=== PATIENT | female | born 1970 | race American Indian/Alaskan Native ===

== ENCOUNTER 2019-01-14 11:42 | Observation (INO) | payer OTHER, MEDICAID ==
[2019-01-14 13:52] LABS: Basophils % (Auto) 0.2 % (0.0-1.8); Eosinophils # (Auto) 0.1 K/mm3 (0.0-0.4); Eosinophils % (Auto) 0.3 % (0.0-4.3); Hematocrit 40.7 % (30.3-42.9); Hemoglobin 13.2 gm/dl (10.1-14.3); Lymphocytes # (Auto) 1.9 K/mm3 (1.2-5.4); Lymphocytes % (Auto) 10.3 % (13.4-35.0); Mean Corpuscular HGB Conc 33 % (30-34); Mean Corpuscular Volume 98 fl (79-97); Monocytes % (Auto) 5.5 % (0.0-7.3); Platelet Count 204 K/mm3 (140-440); Red Blood Count 4.16 M/mm3 (3.65-5.03); Red Cell Distribution Width 13.3 % (13.2-15.2)
[2019-01-14 14:02] LABS: INR 1.03 (0.87-1.13)
[2019-01-14 14:12] LABS: Partial Thromboplastin Time 21.6 Sec. (24.2-36.6)
[2019-01-14 14:21] LABS: Alanine Aminotransferase 17 units/L (7-56); Albumin 4.4 g/dL (3.9-5)
[2019-01-14 14:25] LABS: Bilirubin,Direct < 0.2 mg/dL (0-0.2)
--- NOTE | 2019-01-14 14:32 | Emergency Department Report ---
ED General Adult HPI - General Chief complaint: Syncope Stated complaint: SYNCOPE/HYPOTENSION Time Seen by Provider: 01/14/19 13:04 Source: patient, EMS Mode of arrival: Stretcher Limitations: No Limitations - History of Present Illness Initial comments: This is a 48-year-old lady who states she has chronic back pain and takes gabapentin and another medication that she is unsure of. Apparently she had 2 syncopal episodes today at work. She had no observed seizure activity observed by coworkers. She is a bit nonspecific about the course of events. However she apparently was in a hallway and was assisted to the ground. Then she states she went in the bathroom and "the next thing I noticed I was in the ambulance". She complained of a mild to moderate headache. She did not have a headache prior to her syncopal episode. She experienced no focal neurological change. She denied neck pain or any other painful area secondary to the falls. She denied nausea vomiting photophobia or any apparent injury. -: Sudden, minutes(s) Location: head Radiation: non-radiation Quality: aching Consistency: intermittent Improves with: none Worsens with: none Associated Symptoms: denies other symptoms, syncope Treatments Prior to Arrival: none - Related Data Previous Rx's Medication Instructions Recorded Last Taken Type Terbinafine HCl [Antifungal] 30 gm TP BID #1 cream..g. 08/25/14 Unknown Rx Allergies Allergy/AdvReac Type Severity Reaction Status Date / Time No Known Allergies Allergy Unverified 08/25/14 17:27 ED Review of Systems ROS: Stated complaint: SYNCOPE/HYPOTENSION Other details as noted in HPI Constitutional: denies: chills, fever Eyes: denies: eye pain, eye discharge, vision change ENT: denies: ear pain, throat pain Respiratory: denies: cough, shortness of breath, wheezing Cardiovascular: syncope. denies: chest pain, palpitations Endocrine: no symptoms reported Gastrointestinal: denies: abdominal pain, nausea, diarrhea Genitourinary: denies: urgency, dysuria, discharge Musculoskeletal: denies: back pain, joint swelling, arthralgia Skin: denies: rash, lesions Neurological: as per HPI, headache. 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 ovarian CA - Surgical History Past Surgical History?: Yes Additional Surgical History: Hysterectomy. Bladder tack - Social History Smoking Status: Never Smoker - Medications Home Medications: Home Medications Medication Instructions Recorded Confirmed Last Taken Type Terbinafine HCl [Antifungal] 30 gm TP BID #1 cream..g. 08/25/14 Unknown Rx ED Physical Exam - General Limitations: No Limitations General appearance: alert, in no apparent distress, obese - Head Head exam: Present: atraumatic, normocephalic - Eye Eye exam: Present: normal appearance. Absent: scleral icterus - ENT ENT exam: Present: mucous membranes moist - Neck Neck exam: Present: normal inspection. Absent: tenderness, meningismus - Respiratory Respiratory exam: Present: normal lung sounds bilaterally. Absent: respiratory distress - Cardiovascular Cardiovascular Exam: Present: regular rate, normal rhythm. Absent: systolic murmur, diastolic murmur, rubs, gallop - GI/Abdominal GI/Abdominal exam: Present: soft, normal bowel sounds. Absent: distended, tenderness, guarding, rebound, rigid - Extremities Exam Extremities exam: Present: normal inspection, normal capillary refill. Absent: pedal edema, joint swelling, calf tenderness - Back Exam Back exam: Present: normal inspection - Neurological Exam Neurological exam: Present: alert, oriented X3. Absent: CN II-XII intact, motor sensory deficit - Psychiatric Psychiatric exam: Present: normal affect, normal mood - Skin Skin exam: Present: warm, dry, intact, normal color. Absent: rash ED Course Vital Signs 01/14/19 01/14/19 11:46 14:15 Temperature 97.6 F Pulse Rate 63 55 L Respiratory 20 18 Rate Blood Pressure 103/40 Blood Pressure 107/54 [Left] O2 Sat by Pulse 99 100 Oximetry - Reevaluation(s) Reevaluation #1: On reexamination the patient was not complaining of headache. She is stable. She does have an elevated d-dimer. A CT angiogram is pending. I discussed her case with Dr. Ramos, the hospitalist who will be admitting the patient. 01/14/19 14:48 ED Medical Decision Making - Lab Data Result diagrams: 01/14/19 13:09 01/14/19 13:09 Laboratory Results - last 24 hr 01/14/19 01/14/19 01/14/19 13:09 13:09 13:09 WBC 18.6 H RBC 4.16 Hgb 13.2 Hct 40.7 MCV 98 H MCH 32 MCHC 33 RDW 13.3 Plt Count 204 Lymph % (Auto) 10.3 L [place] % (Auto) 5.5 Eos % (Auto) 0.3 Baso % (Auto) 0.2 Lymph # 1.9 [place] # 1.0 H Eos # 0.1 Baso # 0.0 Seg Neutrophils % 83.7 H Seg Neutrophils # 15.5 H PT 13.4 INR 1.03 APTT 21.6 L D-Dimer 689.74 H Sodium 140 Potassium 4.4 Chloride 102.1 Carbon Dioxide 19 L Anion Gap 23 BUN 12 Creatinine 0.8 Estimated GFR > 60 BUN/Creatinine Ratio 15 Glucose 84 Calcium 9.7 Magnesium 2.00 Total Bilirubin Direct Bilirubin Indirect Bilirubin AST ALT Alkaline Phosphatase Total Creatine Kinase 61 CK-MB (CK-2) 1.5 CK-MB (CK-2) Rel Index 2.4 Troponin T 0.015 Total Protein Albumin Albumin/Globulin Ratio Blood Type Antibody Screen 01/14/19 01/14/19 13:09 13:09 WBC RBC Hgb Hct MCV MCH MCHC RDW Plt Count Lymph % (Auto) [place] % (Auto) Eos % (Auto) Baso % (Auto) Lymph # [place] # Eos # Baso # Seg Neutrophils % Seg Neutrophils # PT INR APTT D-Dimer Sodium Potassium Chloride Carbon Dioxide Anion Gap BUN Creatinine Estimated GFR BUN/Creatinine Ratio Glucose Calcium Magnesium Total Bilirubin 0.50 Direct Bilirubin < 0.2 Indirect Bilirubin 0.3 AST 18 ALT 17 Alkaline Phosphatase 86 Total Creatine Kinase CK-MB (CK-2) CK-MB (CK-2) Rel Index Troponin T Total Protein 7.2 Albumin 4.4 Albumin/Globulin Ratio 1.6 Blood Type B POSITIVE Antibody Screen Negative - EKG Data -: EKG Interpreted by Me EKG shows normal: sinus rhythm, axis, intervals, QRS complexes, ST-T waves Rate: normal - EKG Data Interpretation: no acute changes - Radiology Data Radiology results: image reviewed (CT the head looks normal to me. Radiologist interpretation is pending.) Critical care attestation.: If time is entered above; I have spent that time in minutes in the direct care of this critically ill patient, excluding procedure time. ED Disposition Clinical Impression: Recurrent syncope, Elevated d-dimer Headache Qualifiers: Headache type: unspecified Headache chronicity pattern: acute headache Intractability: not intractable Qualified Code(s): R51 - Headache Disposition: DC-09 OP ADMIT IP TO THIS HOSP Is pt being admited?: Yes Does the pt Need Aspirin: Yes Condition: Stable Time of Disposition: 14:51
[2019-01-14 14:34] LABS: Creatine Kinase MB 1.5 ng/mL (0.0-4.0)
[2019-01-14 14:36] LABS: BUN/Creatinine Ratio 15; Blood Urea Nitrogen 12 mg/dL (7-17); Calcium 9.7 mg/dL (8.4-10.2); Hemolysis Index 20
[2019-01-14] MEDS ORDERED: ASPIRIN 81 MG TAB CHEW PO ONE (14:52)
[2019-01-14 14:54] LABS: Mucus,Urine 2+ /HPF
--- NOTE | 2019-01-14 14:54 | Cat Scan Report ---
CT HEAD WITHOUT CONTRAST INDICATION / CLINICAL INFORMATION: Syncope. TECHNIQUE: Axial imaging performed from the skull apex through the skull base without the use of cont rast. Sagittal and coronal reformatted images. All CT scans at this location are performed using CT dose reduction for ALARA by means of automated exposure control. COMPARISON: None available. FINDINGS: CEREBRAL PARENCHYMA: No significant abnormality. No acute territorial infarct. HEMORRHAGE: None. EXTRA-AXIAL SPACES: Normal in size and morphology for the patient's age. VENTRICULAR SYSTEM: Normal in size and morphology for the patient's age. MIDLINE SHIFT OR HERNIATION: None. CEREBELLUM / BRAINSTEM: No significant abnormality. CALVARIUM: No significant abnormality. ORBITS: Normal as visualized. PARANASAL SINUSES / MASTOID AIR CELLS: Normal as visualized. SOFT TISSUES of HEAD: No significant abnormality. ADDITIONAL FINDINGS: None. IMPRESSION: No acute intracranial abnormality. Signer Name: Gavin Fraire Jr, MD Signed: 01/14/2019 2:50 PM Workstation Name: [id number]
[2019-01-14 15:11] LABS: Color,Urine Yellow (Yellow)
[2019-01-14 15:12] LABS: Urobilinogen,Urine < 2.0 mg/dL (<2.0)
[2019-01-14 15:13] LABS: Ictotest,Urine Negative (Negative)
[2019-01-14 15:25] LABS: Amphetamine Screen,Urine PRESUMPTIVE NEGATIVE; Benzodiazepines Screen,Urine PRESUMPTIVE NEGATIVE; Cannabinoid Screen,Urine PRESUMPTIVE NEGATIVE; Cocaine Screen,Urine PRESUMPTIVE NEGATIVE; Methadone Screen,Urine PRESUMPTIVE NEGATIVE; Opiate Screen,Urine PRESUMPTIVE NEGATIVE
--- NOTE | 2019-01-14 16:00 | Cat Scan Report ---
CTA of the chest with 3D Reconstruction Indication: ,syncope and elevated dimer Technique: TECHNIQUE: Axial CT images were obtained through the chest after injection of 100 cc of Omnipaque 350 IV contrast. 3 plane MIP reconstructions were produced. All CT scans at this location are performed using CT dose reduction for ALARA by means of automated exposure control. COMPARISON: None Automatic exposure control was utilized in an attempt to reduce radiation dose. Findings: Pulmonary arteries: The main pulmonary artery and right and left pulmonary artery branches fill satis factorily with contrast. No pulmonary embolus is seen. Lungs: There are small calcified granulomata. Mediastinum: Heart size is normal. No adenopathy is seen. Aorta: Normal in diameter. No dissection seen within limits of this exam. Impression: No pulmonary embolus is seen Signer Name: Zac Wiseman MD Signed: 01/14/2019 3:55 PM Workstation Name: [id number]
--- NOTE | 2019-01-14 16:30 | History and Physical Report ---
History of Present Illness Date of examination: 01/14/19 Date of admission: 01/14/19 15:01 Chief complaint: Syncopal episodes 2 this morning at work History of present illness: 48-year-old lady had 2 syncopal episodes today at work. Syncopal episodes were [id number] over 30 minutes apart. She had no observed seizure activity observed by coworkers. No precipitating factors. Never happened before. Apparently she was sitting and passed out at her desk. No chest pain or shortness of breath. Patient has history of peripheral neuropathy. Not under any stress. No chest pain. No shortness of breath. Lying in the bed comfortably. No recent travel. 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 ovarian CA Surgical History Past Surgical History?: Yes Additional Surgical History: Hysterectomy. Bladder tack Oral surgery secondary to a deep molar on the right jaw. Patient says she had a luna in the right jaw. Social History Smoking Status: Never Smoker Family History Htn Medications Home Medications: Home Medications Medication Instructions Recorded Confirmed Last Taken Type Terbinafine HCl [Antifungal] 30 gm TP BID #1 cream..g. 08/25/14 Unknown Rx Review of Systems ROS: Stated complaint: SYNCOPE/HYPOTENSION Other details as noted in HPI Constitutional: denies: chills, fever Eyes: denies: eye pain, eye discharge, vision change ENT: denies: ear pain, throat pain Respiratory: denies: cough, shortness of breath, wheezing Cardiovascular: syncope. denies: chest pain, palpitations Endocrine: no symptoms reported Gastrointestinal: denies: abdominal pain, nausea, diarrhea Genitourinary: denies: urgency, dysuria, discharge Musculoskeletal: denies: back pain, joint swelling, arthralgia Skin: denies: rash, lesions Neurological: as per HPI, headache. denies: weakness, paresthesias Psychiatric: denies: anxiety, depression Hematological/Lymphatic: denies: easy bleeding, easy bruising Medications and Allergies Allergies Allergy/AdvReac Type Severity Reaction Status Date / Time No Known Allergies Allergy Unverified 08/25/14 17:27 Home Medications Medication Instructions Recorded Confirmed Last Taken Type Gabapentin 300 mg PO QHS 01/14/19 01/14/19 01/14/19 History Omeprazole 20 mg PO QAC 01/14/19 01/14/19 01/14/19 History tiZANidine [Zanaflex 4mg TAB] 4 mg PO QHS 01/14/19 01/14/19 01/13/19 History Exam - Constitutional Vitals: Temp Pulse Resp BP Pulse Ox 97.6 F 78 14 125/78 95 01/14/19 11:46 01/14/19 16:15 01/14/19 16:15 01/14/19 16:15 01/14/19 16:15 General appearance: Present: no acute distress, well-nourished - EENT Eyes: Present: PERRL ENT: hearing intact, clear oral mucosa - Neck Neck: Present: supple, normal ROM - Respiratory Respiratory effort: normal Respiratory: bilateral: CTA - Cardiovascular Heart rate: 78 Rhythm: regular Heart Sounds: Present: S1 & S2. Absent: rub, click - Extremities Extremities: no ischemia, pulses intact (was a), pulses symmetrical, No edema Peripheral Pulses: within normal limits - Abdominal General gastrointestinal: Present: soft, non-tender, non-distended, normal bowel sounds Female genitourinary: Present: normal - Rectal Rectal Exam: deferred - Integumentary Integumentary: Present: clear, warm, dry - Musculoskeletal Musculoskeletal: gait normal, strength equal bilaterally - Psychiatric Psychiatric: appropriate mood/affect, intact judgment & insight - Neurologic Neurologic: CNII-XII intact, moves all extremities - Allied Health Allied health notes reviewed: nursing, case management ( little elevated initially) Results - Labs CBC & Chem 7: 01/14/19 13:09 01/14/19 13:09 Labs: Laboratory Last Values WBC 18.6 K/mm3 (4.5-11.0) H 01/14/19 13:09 RBC 4.16 M/mm3 (3.65-5.03) 01/14/19 13:09 Hgb 13.2 gm/dl (10.1-14.3) 01/14/19 13:09 Hct 40.7 % (30.3-42.9) 01/14/19 13:09 MCV 98 fl (79-97) H 01/14/19 13:09 MCH 32 pg (28-32) 01/14/19 13:09 MCHC 33 % (30-34) 01/14/19 13:09 RDW 13.3 % (13.2-15.2) 01/14/19 13:09 Plt Count 204 K/mm3 (140-440) 01/14/19 13:09 Lymph % (Auto) 10.3 % (13.4-35.0) L 01/14/19 13:09 [place] % (Auto) 5.5 % (0.0-7.3) 01/14/19 13:09 Eos % (Auto) 0.3 % (0.0-4.3) 01/14/19 13:09 Baso % (Auto) 0.2 % (0.0-1.8) 01/14/19 13:09 Lymph # 1.9 K/mm3 (1.2-5.4) 01/14/19 13:09 [place] # 1.0 K/mm3 (0.0-0.8) H 01/14/19 13:09 Eos # 0.1 K/mm3 (0.0-0.4) 01/14/19 13:09 Baso # 0.0 K/mm3 (0.0-0.1) 01/14/19 13:09 Seg Neutrophils % 83.7 % (40.0-70.0) H 01/14/19 13:09 Seg Neutrophils # 15.5 K/mm3 (1.8-7.7) H 01/14/19 13:09 PT 13.4 Sec. (12.2-14.9) 01/14/19 13:09 INR 1.03 (0.87-1.13) 01/14/19 13:09 APTT 21.6 Sec. (24.2-36.6) L 01/14/19 13:09 D-Dimer 689.74 ng/mlDDU (0-234) H 01/14/19 13:09 Sodium 140 mmol/L (137-145) 01/14/19 13:09 Potassium 4.4 mmol/L (3.6-5.0) 01/14/19 13:09 Chloride 102.1 mmol/L (98-107) 01/14/19 13:09 Carbon Dioxide 19 mmol/L (22-30) L 01/14/19 13:09 Anion Gap 23 mmol/L 01/14/19 13:09 BUN 12 mg/dL (7-17) 01/14/19 13:09 Creatinine 0.8 mg/dL (0.7-1.2) 01/14/19 13:09 Estimated GFR > 60 ml/min 01/14/19 13:09 BUN/Creatinine Ratio 15 % 01/14/19 13:09 Glucose 84 mg/dL (65-100) 01/14/19 13:09 Calcium 9.7 mg/dL (8.4-10.2) 01/14/19 13:09 Magnesium 2.00 mg/dL (1.7-2.3) 01/14/19 13:09 Total Bilirubin 0.50 mg/dL (0.1-1.2) 01/14/19 13:09 Direct Bilirubin < 0.2 mg/dL (0-0.2) 01/14/19 13:09 Indirect Bilirubin 0.3 mg/dL 01/14/19 13:09 AST 18 units/L (5-40) 01/14/19 13:09 ALT 17 units/L (7-56) 01/14/19 13:09 Alkaline Phosphatase 86 units/L (35-129) 01/14/19 13:09 Total Creatine Kinase 61 units/L (30-135) 01/14/19 13:09 CK-MB (CK-2) 1.5 ng/mL (0.0-4.0) 01/14/19 13:09 CK-MB (CK-2) Rel Index 2.4 (0-4) 01/14/19 13:09 Troponin T 0.015 ng/mL (0.00-0.029) 01/14/19 13:09 Total Protein 7.2 g/dL (6.3-8.2) 01/14/19 13:09 Albumin 4.4 g/dL (3.9-5) 01/14/19 13:09 Albumin/Globulin Ratio 1.6 % 01/14/19 13:09 Urine Color Yellow (Yellow) 01/14/19 14:22 Urine Turbidity Clear (Clear) 01/14/19 14:22 Urine pH 7.0 (5.0-7.0) 01/14/19 14:22 Urine Protein 30 mg/dl mg/dL (Negative) 01/14/19 14:22 Urine Glucose (UA) Negative mg/dL (Negative) 01/14/19 14:22 Urine Ketones Negative mg/dL (Negative) 01/14/19 14:22 Urine Nitrite Negative (Negative) 01/14/19 14:22 Ur Reducing Substances Not Reportable 01/14/19 14:22 Urine Ictotest Negative (Negative) 01/14/19 14:22 Urine Urobilinogen < 2.0 mg/dL (<2.0) 01/14/19 14:22 Ur Leukocyte Esterase Negative (Negative) 01/14/19 14:22 Urine WBC (Auto) 1.0 /HPF (0.0-6.0) 01/14/19 14:22 Urine RBC (Auto) 1.0 /HPF (0.0-6.0) 01/14/19 14:22 U Epithel Cells (Auto) < 1.0 /HPF (0-13.0) 01/14/19 14:22 Urine Mucus 2+ /HPF 01/14/19 14:22 Urine Opiates Screen Presumptive negative 01/14/19 14:22 Urine Methadone Screen Presumptive negative 01/14/19 14:22 Ur Barbiturates Screen Presumptive negative 01/14/19 14:22 Ur Phencyclidine Scrn Presumptive negative 01/14/19 14:22 Ur Amphetamines Screen Presumptive negative 01/14/19 14:22 U Benzodiazepines Scrn Presumptive negative 01/14/19 14:22 Urine Cocaine Screen Presumptive negative 01/14/19 14:22 U Marijuana (THC) Screen Presumptive negative 01/14/19 14:22 Drugs of Abuse Note Disclamer 01/14/19 14:22 Blood Type B POSITIVE 01/14/19 13:09 Antibody Screen Negative 01/14/19 13:09 Short CBC 01/14/19 Range/Units 13:09 WBC 18.6 H (4.5-11.0) K/mm3 Hgb 13.2 (10.1-14.3) gm/dl Hct 40.7 (30.3-42.9) % Plt Count 204 (140-440) K/mm3 BMP 01/14/19 13:09 Sodium 140 Potassium 4.4 Chloride 102.1 Carbon Dioxide 19 L BUN 12 Creatinine 0.8 Glucose 84 Calcium 9.7 Cardiac Enzymes 01/14/19 Range/Units 13:09 Total Creatine Kinase 61 (30-135) units/L CK-MB (CK-2) 1.5 (0.0-4.0) ng/mL Troponin T 0.015 (0.00-0.029) ng/mL Liver Function 01/14/19 Range/Units 13:09 Total Bilirubin 0.50 (0.1-1.2) mg/dL Direct Bilirubin < 0.2 (0-0.2) mg/dL AST 18 (5-40) units/L ALT 17 (7-56) units/L Alkaline Phosphatase 86 (35-129) units/L Albumin 4.4 (3.9-5) g/dL Urine 01/14/19 Range/Units 14:22 Urine Color Yellow (Yellow) Urine pH 7.0 (5.0-7.0) Urine Protein 30 mg/dl (Negative) mg/dL Urine Glucose (UA) Negative (Negative) mg/dL - Imaging and Cardiology EKG: report reviewed (normal sinus rhythm heart rate of 60/m no acute ST-T wave changes) Chest x-ray: report reviewed CT scan - chest: report reviewed (CT angiogram is negative for pulmonary embolism) CT Scan - head: report reviewed (no acute findings) Assessment and Plan Advance Directives: Yes (full code) VTE prophylaxis?: Chemical Plan of care discussed with patient/family: Yes - Patient Problems (1) Recurrent syncope Current Visit: Yes Status: Acute Plan to address problem: Syncope workup CT angiogram of the chest is negative Head CT is negative Patient to get echocardiogram and stress test tomorrow Serial troponins IV fluids (2) Muscle spasm Current Visit: Yes Status: Chronic Plan to address problem: Continue tizanidine (3) Leukocytosis Current Visit: Yes Status: Acute Qualifiers: Leukocytosis type: unspecified Qualified Code(s): D72.829 - Elevated white blood cell count, unspecified Plan to address problem: Probably Demargination No source of infection identified No antibiotics were started Trend her WBC count (4) GERD (gastroesophageal reflux disease) Current Visit: Yes Status: Acute Qualifiers: Esophagitis presence: without esophagitis Qualified Code(s): K21.9 - Gastro-esophageal reflux disease without esophagitis Plan to address problem: On PPIs (5) DVT prophylaxis Current Visit: Yes Status: Acute Plan to address problem: On heparin and GI prophylaxis
[2019-01-14] MEDS ORDERED: ACETAMINOPHEN 325 MG TAB PO PRN ×2 (17:34→17:50)
[2019-01-14] MEDS ORDERED: oxyCODONE /ACETAMINOPHEN 5-325MG TAB PO PRN (17:34)
[2019-01-14] MEDS ORDERED: HYDROmorphone 1 MG/1 ML INJ IV PRN (17:34)
[2019-01-14] MEDS ORDERED: ONDANSETRON 4 MG/2 ML INJ IV PRN ×2 (17:34→17:51)
[2019-01-14] MEDS: SODIUM CHLORIDE 0.9% 1000 ML 1,000 ML IV SCH (21:11)
[2019-01-14] MEDS: FAMOTIDINE 20 MG/2 ML INJ IV SCH (21:12)
[2019-01-14] MEDS: tiZANidine TAB 4 MG TAB PO SCH (21:12)
[2019-01-14] MEDS: GABAPENTIN 300 MG CAP PO SCH (21:12)
[2019-01-14] MEDS: HEPARIN 5,000 UNIT/1 ML VIAL SUB-Q SCH (21:12)
[2019-01-15] MEDS: SODIUM CHLORIDE 0.9% 1000 ML 1,000 ML IV SCH (06:49)
[2019-01-15] MEDS ORDERED: NON-FORMULARY EACH (Omeprazole [Omeprazole] 20 MG) PO SCH (07:30)
[2019-01-15] MEDS ORDERED: PANTOPRAZOLE 20 MG TAB PO SCH (07:30)
[2019-01-15] MEDS: FAMOTIDINE 20 MG/2 ML INJ IV SCH (09:52)
[2019-01-15] MEDS: HEPARIN 5,000 UNIT/1 ML VIAL SUB-Q SCH ×2 (09:52→21:49)
[2019-01-15] MEDS: PANTOPRAZOLE 20 MG TAB PO SCH ×2 (09:52→13:13)
[2019-01-15] MEDS ORDERED: REGADENOSON 0.4 MG/5 ML INJ IV ONE (10:09)
[2019-01-15] MEDS ORDERED: FLU VACC QUAD 2019-20 (3 YR UP)/PF 60 MCG/0.5 ML SYRINGE IM ONE (12:00)
--- NOTE | 2019-01-15 12:00 | Event Note ---
Date: 01/15/19 Syncope Normal 12 lead ECG No arrhythmias on tele Normal LVEF Normal MPI No PE on CTA chest NAP on CT brain No further cardiac work-up is needed
[2019-01-15 13:03] LABS: Hematocrit 37.9 % (30.3-42.9); Hemoglobin 12.9 gm/dl (10.1-14.3); Mean Corpuscular HGB Conc 34 % (30-34); Mean Corpuscular Volume 95 fl (79-97); Platelet Count 213 K/mm3 (140-440); Red Blood Count 4.01 M/mm3 (3.65-5.03); Red Cell Distribution Width 13.2 % (13.2-15.2)
--- NOTE | 2019-01-15 13:34 | Treadmill Report ---
ORDERING PHYSICIAN: Carter Ramos MD INDICATION: Syncope. FINDINGS: There is no scintigraphic evidence of myocardial ischemia. The left ventricle is normal in size and systolic function. The left ventricular ejection fraction is measured at 60%. Normal wall motion and wall thickening is noted on gated imaging. CONCLUSION: Normal perfusion scan. JOB# [id number]
--- NOTE | 2019-01-15 16:06 | Progress Note ---
Assessment and Plan Assessment and plan: Recurrent syncope Syncope workup CT angiogram of the chest is negative Head CT is negative Patient to get echocardiogram and stress test tomorrow Stress test negative Will consult Neurology Neurochecks Muscle spasm Continue tizanidine Leukocytosis Probably Demargination No source of infection identified No antibiotics were started Trend her WBC count GERD (gastroesophageal reflux disease) On PPIs (DVT prophylaxis On heparin and GI prophylaxis History Interval history: Syncope X 2 at work Hospitalist Physical - Physical exam Narrative exam: Gen: Not in acute distress, lying in bed, obese HEENT: Normocephalic, atraumatic Neck: supple, no JVD Heart: S1 and S2 reg, no murmurs, rubs or gallop Lungs: Clear to auscultation bilaterally, Abd: soft, non tender, non distended, normal BS, Ext: No edema, no clubbing, no cyanosis Neuro: Awake, alert, oriented X 3, moves all ext - Constitutional Vitals: Temp Pulse Resp BP Pulse Ox 97.7 F 74 15 127/67 95 01/15/19 12:27 01/15/19 12:27 01/15/19 12:27 01/15/19 12:27 01/15/19 12:27 General appearance: Present: no acute distress, well-nourished Results - Labs CBC & Chem 7: 01/15/19 12:51 01/14/19 13:09 Labs: Laboratory Last Values WBC 9.2 K/mm3 (4.5-11.0) 01/15/19 12:51 RBC 4.01 M/mm3 (3.65-5.03) 01/15/19 12:51 Hgb 12.9 gm/dl (10.1-14.3) 01/15/19 12:51 Hct 37.9 % (30.3-42.9) 01/15/19 12:51 MCV 95 fl (79-97) 01/15/19 12:51 MCH 32 pg (28-32) 01/15/19 12:51 MCHC 34 % (30-34) 01/15/19 12:51 RDW 13.2 % (13.2-15.2) 01/15/19 12:51 Plt Count 213 K/mm3 (140-440) 01/15/19 12:51 Lymph % (Auto) 10.3 % (13.4-35.0) L 01/14/19 13:09 [place] % (Auto) 5.5 % (0.0-7.3) 01/14/19 13:09 Eos % (Auto) 0.3 % (0.0-4.3) 01/14/19 13:09 Baso % (Auto) 0.2 % (0.0-1.8) 01/14/19 13:09 Lymph # 1.9 K/mm3 (1.2-5.4) 01/14/19 13:09 [place] # 1.0 K/mm3 (0.0-0.8) H 01/14/19 13:09 Eos # 0.1 K/mm3 (0.0-0.4) 01/14/19 13:09 Baso # 0.0 K/mm3 (0.0-0.1) 01/14/19 13:09 Seg Neutrophils % 83.7 % (40.0-70.0) H 01/14/19 13:09 Seg Neutrophils # 15.5 K/mm3 (1.8-7.7) H 01/14/19 13:09 PT 13.4 Sec. (12.2-14.9) 01/14/19 13:09 INR 1.03 (0.87-1.13) 01/14/19 13:09 APTT 21.6 Sec. (24.2-36.6) L 01/14/19 13:09 D-Dimer 689.74 ng/mlDDU (0-234) H 01/14/19 13:09 Sodium 140 mmol/L (137-145) 01/14/19 13:09 Potassium 4.4 mmol/L (3.6-5.0) 01/14/19 13:09 Chloride 102.1 mmol/L (98-107) 01/14/19 13:09 Carbon Dioxide 19 mmol/L (22-30) L 01/14/19 13:09 Anion Gap 23 mmol/L 01/14/19 13:09 BUN 12 mg/dL (7-17) 01/14/19 13:09 Creatinine 0.8 mg/dL (0.7-1.2) 01/14/19 13:09 Estimated GFR > 60 ml/min 01/14/19 13:09 BUN/Creatinine Ratio 15 % 01/14/19 13:09 Glucose 84 mg/dL (65-100) 01/14/19 13:09 Calcium 9.7 mg/dL (8.4-10.2) 01/14/19 13:09 Magnesium 2.00 mg/dL (1.7-2.3) 01/14/19 13:09 Total Bilirubin 0.50 mg/dL (0.1-1.2) 01/14/19 13:09 Direct Bilirubin < 0.2 mg/dL (0-0.2) 01/14/19 13:09 Indirect Bilirubin 0.3 mg/dL 01/14/19 13:09 AST 18 units/L (5-40) 01/14/19 13:09 ALT 17 units/L (7-56) 01/14/19 13:09 Alkaline Phosphatase 86 units/L (35-129) 01/14/19 13:09 Total Creatine Kinase 61 units/L (30-135) 01/14/19 13:09 CK-MB (CK-2) 1.5 ng/mL (0.0-4.0) 01/14/19 13:09 CK-MB (CK-2) Rel Index 2.4 (0-4) 01/14/19 13:09 Troponin T < 0.010 ng/mL (0.00-0.029) 01/15/19 00:19 Total Protein 7.2 g/dL (6.3-8.2) 01/14/19 13:09 Albumin 4.4 g/dL (3.9-5) 01/14/19 13:09 Albumin/Globulin Ratio 1.6 % 01/14/19 13:09 Urine Color Yellow (Yellow) 01/14/19 14:22 Urine Turbidity Clear (Clear) 01/14/19 14:22 Urine pH 7.0 (5.0-7.0) 01/14/19 14:22 Urine Protein 30 mg/dl mg/dL (Negative) 01/14/19 14:22 Urine Glucose (UA) Negative mg/dL (Negative) 01/14/19 14:22 Urine Ketones Negative mg/dL (Negative) 01/14/19 14:22 Urine Nitrite Negative (Negative) 01/14/19 14:22 Ur Reducing Substances Not Reportable 01/14/19 14:22 Urine Ictotest Negative (Negative) 01/14/19 14:22 Urine Urobilinogen < 2.0 mg/dL (<2.0) 01/14/19 14:22 Ur Leukocyte Esterase Negative (Negative) 01/14/19 14:22 Urine WBC (Auto) 1.0 /HPF (0.0-6.0) 01/14/19 14:22 Urine RBC (Auto) 1.0 /HPF (0.0-6.0) 01/14/19 14:22 U Epithel Cells (Auto) < 1.0 /HPF (0-13.0) 01/14/19 14:22 Urine Mucus 2+ /HPF 01/14/19 14:22 Urine Opiates Screen Presumptive negative 01/14/19 14:22 Urine Methadone Screen Presumptive negative 01/14/19 14:22 Ur Barbiturates Screen Presumptive negative 01/14/19 14:22 Ur Phencyclidine Scrn Presumptive negative 01/14/19 14:22 Ur Amphetamines Screen Presumptive negative 01/14/19 14:22 U Benzodiazepines Scrn Presumptive negative 01/14/19 14:22 Urine Cocaine Screen Presumptive negative 01/14/19 14:22 U Marijuana (THC) Screen Presumptive negative 01/14/19 14:22 Drugs of Abuse Note Disclamer 01/14/19 14:22 Blood Type B POSITIVE 01/14/19 13:09 Antibody Screen Negative 01/14/19 13:09 Active Medications - Current Medications Current Medications: Generic Name Dose Route Start Last Admin Trade Name Freq PRN Reason Stop Dose Admin Acetaminophen 650 mg 01/14/19 17:34 Tylenol PO Q4H PRN Pain MILD(1-3)/Fever >100.5/HARVEY Gabapentin 300 mg 01/14/19 22:00 01/14/19 21:12 Gabapentin PO 300 mg QHS AIXA Administration Heparin Sodium (Porcine) 5,000 unit 01/14/19 22:00 01/15/19 09:52 Heparin SUB-Q Not Given Q12HR AIXA Hydromorphone HCl 0.5 mg 01/14/19 17:34 01/15/19 06:54 Dilaudid IV 0.5 mg Q3H PRN Administration Pain , Severe (7-10) Sodium Chloride 1,000 mls @ 75 mls/hr 01/14/19 18:00 01/15/19 06:49 Nacl 0.9% 1000 Ml IV 75 mls/hr DIRECT AIXA Administration Ondansetron HCl 4 mg 01/14/19 17:34 Zofran IV Q8H PRN Nausea And Vomiting Oxycodone/Acetaminophen 1 tab 01/14/19 17:34 Percocet 5/325 PO Q6H PRN Pain, Moderate (4-6) Pantoprazole Sodium 20 mg 01/15/19 10:00 01/15/19 13:13 Protonix PO 20 mg QDAY AIXA Administration Sodium Chloride 10 ml 01/14/19 22:00 01/15/19 09:53 Sodium Chloride Flush Syringe 10 Ml IV Not Given BID AIXA Sodium Chloride 10 ml 01/14/19 17:34 Sodium Chloride Flush Syringe 10 Ml IV PRN PRN LINE FLUSH Tizanidine HCl 4 mg 01/14/19 22:00 01/14/19 21:12 Zanaflex PO 4 mg QHS AIXA Administration
--- NOTE | 2019-01-15 17:31 | Consultation ---
History of Present Illness Consult date: 01/15/19 Reason for Consult: Syncope Chief complaint: Loss of consciousness. History of present illness: Patient is a 48-year-old woman with history of ovarian cancer status post resection, IBS, inflammatory bowel disease, chronic back pain. The patient states that yesterday while at work, and around 10 AM, she suddenly began to feel lightheaded. She then stood up, after which she was noted to lose consciousness. Patient is not aware if she was having convulsions or any seizure-like activity when she lost consciousness. When she woke up, she noted that she had lost control of her bowel, and was taken to the bathroom. In the bathroom, the patient lost consciousness again. The next thing she remembers is that she was in the ambulance coming to the hospital. That she states that she has had chronic diarrhea due to underlying IBS and inflammatory bowel disease. She states that she is also had some difficulty looking left and right recently, she starts to get dizzy. Past History Past Medical History: other (h/o ovarian CA s/p resection) Social history: no significant social history, lives with family Family history: no significant family history Medications and Allergies Allergies Allergy/AdvReac Type Severity Reaction Status Date / Time No Known Allergies Allergy Unverified 08/25/14 17:27 Home Medications Medication Instructions Recorded Confirmed Last Taken Type Gabapentin 300 mg PO QHS 01/14/19 01/14/19 01/14/19 History Omeprazole 20 mg PO QAC 01/14/19 01/14/19 01/14/19 History tiZANidine [Zanaflex 4mg TAB] 4 mg PO QHS 01/14/19 01/14/19 01/13/19 History Active Meds: Active Medications Acetaminophen (Tylenol) 650 mg PO Q4H PRN PRN Reason: Pain MILD(1-3)/Fever >100.5/HARVEY Gabapentin (Gabapentin) 300 mg PO QHS [facility] Last Admin: 01/14/19 21:12 Dose: 300 mg Documented by: Heparin Sodium (Porcine) (Heparin) 5,000 unit SUB-Q Q12HR [facility] Last Admin: 01/15/19 09:52 Dose: Not Given Documented by: Hydromorphone HCl (Dilaudid) 0.5 mg IV Q3H PRN PRN Reason: Pain , Severe (7-10) Last Admin: 01/15/19 06:54 Dose: 0.5 mg Documented by: Sodium Chloride (Nacl 0.9% 1000 Ml) 1,000 mls @ 75 mls/hr IV DIRECT [facility] Last Admin: 01/15/19 06:49 Dose: 75 mls/hr Documented by: Ondansetron HCl (Zofran) 4 mg IV Q8H PRN PRN Reason: Nausea And Vomiting Oxycodone/Acetaminophen (Percocet 5/325) 1 tab PO Q6H PRN PRN Reason: Pain, Moderate (4-6) Pantoprazole Sodium (Protonix) 20 mg PO QDAY [facility] Last Admin: 01/15/19 13:13 Dose: 20 mg Documented by: Sodium Chloride (Sodium Chloride Flush Syringe 10 Ml) 10 ml IV BID [facility] Last Admin: 01/15/19 09:53 Dose: Not Given Documented by: Sodium Chloride (Sodium Chloride Flush Syringe 10 Ml) 10 ml IV PRN PRN PRN Reason: LINE FLUSH Tizanidine HCl (Zanaflex) 4 mg PO QHS [facility] Last Admin: 01/14/19 21:12 Dose: 4 mg Documented by: Review of Systems All systems: negative Neurological: syncope Physical Examination - Vital Signs Vital Signs: Vital Signs Temp Pulse Resp BP Pulse Ox 97.6 F 63 20 103/40 99 01/14/19 11:46 01/14/19 11:46 01/14/19 11:46 01/14/19 11:46 01/14/19 11:46 - Physical Exam Narrative exam: Patient is alert, awake, oriented x4. Follows complex commands. PERRL, EOMI, VFF, no facial weakness noted, tongue midline, b/l intact to LT. 5/5 strength in all extremities. b/l intact to LT. B/l intact to FTN and HTS. 2+ reflexes throughout. No dysarthria or aphasia noted. Patient noted that she feels dizzy when checking EOMI, however no nystagmus noted. - Constitutional General appearance: comfortable - EENT EENT: Present: ATNC, PERRL, mucous membranes moist, hearing intact, vision intact - Respiratory Respiratory: Present: lungs clear, normal breath sounds - Cardiovascular Cardiovascular: Present: regular rate, normal S1, normal S2 Extremities: Present: no clubbing, cyanosis, no inflammation - Gastrointestinal Gastrointestinal: Present: normoactive bowel sounds, soft, non-tender - Musculoskeletal Musculoskeletal: Present: no pain, normal range of motion - Psychiatric Psychiatric: Present: mood/affect appropriate Results - Laboratory Findings CBC and BMP: 01/15/19 12:51 01/14/19 13:09 Abnormal Lab Findings: Abnormal Labs 01/14/19 01/14/19 01/14/19 13:09 13:09 13:09 WBC 18.6 H MCV 98 H Lymph % (Auto) 10.3 L [place] # 1.0 H Seg Neutrophils % 83.7 H Seg Neutrophils # 15.5 H APTT 21.6 L D-Dimer 689.74 H Carbon Dioxide 19 L Assessment and Plan Patient is a 48-year-old woman with history of ovarian cancer status post rese ction, IBS, inflammatory bowel disease, chronic back pain, p/w LOC. According to the patient's clinical findings, it is likely that the patient has orthostatic hypotension. To support this, patient had increase in pulse >20 when standing up. Further, patient has chronic diarrhea due to underlying IBS and IBD, which would pre-dispose her to dehydration. Plan: 1. Syncope: - Likely due to orthostatic hypotension, as noted on orthostatic vital signs - Recommend avoiding dehydration. - Will check EEG - Patient to find out from co-workers if she had any convulsions during LOC - Check MRI brain, and MRA head/neck, as patient noted to have significant dizziness when looking laterally in both eyes. - Will continue to monitor patient. Thank you for allowing me to take part in the care of this patient. Keyon Álvarez MD Neurology
[2019-01-15] MEDS: GABAPENTIN 300 MG CAP PO SCH (21:49)
[2019-01-15] MEDS: tiZANidine TAB 4 MG TAB PO SCH (21:49)
[2019-01-16] MEDS: SODIUM CHLORIDE 0.9% 1000 ML 1,000 ML IV SCH (04:14)
--- NOTE | 2019-01-16 09:28 | Magnetic Resonance Report ---
MRI BRAIN WITHOUT CONTRAST INDICATION / CLINICAL INFORMATION: Syncope, dizziness. TECHNIQUE: Multisequence, multiplanar images were obtained. COMPARISON: CT head dated 01/14/2019 FINDINGS: CEREBRAL and CEREBELLAR HEMISPHERES: A solitary 8 mm focus of increased T2 signal/decreased T1 signal is identified in the left pericallosal region of the left parietal lobe. The remaining brain parench yma signal intensity and its lopez-white interface are within normal limits. No evidence of mass or ma ss effect. No midline shift. No acute hemorrhage. No diffusion restriction to suggest acute infarc t. No extra-axial fluid collection. VENTRICLES: Normal in size and configuration for age. VISUALIZED ORBITS: No significant abnormality. VISUALIZED PARANASAL SINUSES: No significant abnormality. ADDITIONAL FINDINGS: None. IMPRESSION: 8mm left parietal pericallosal lesion as described. This could represent a demyelinating plaque of un certain chronicity. As this patient have a history of multiple sclerosis Chronic focal infarct could also be considered. Please correlate with the patient's clinical presentation. MRA HEAD WITHOUT CONTRAST HISTORY: Syncope, dizziness COMPARISON: None. TECHNIQUE: Routine MRA of the head is performed. 3-D/MIP reformats postprocessed. CONTRAST: None. FINDINGS: Intracranial vertebral arteries: No significant abnormality. Basilar artery: No significant abnormality. Posterior cerebral arteries: No significant abnormality. Intracranial internal carotid arteries: No significant abnormality. Anterior cerebral arteries: No significant abnormality. Middle cerebral arteries: No significant abnormality. Additional findings: No evidence for aneurysm or significant atherosclerotic disease. IMPRESSION: Unremarkable MRA head. Signer Name: Gavin Fraire Jr, MD Signed: 01/16/2019 9:23 AM Workstation Name: [id number]
--- NOTE | 2019-01-16 09:51 | Magnetic Resonance Report ---
MRA NECK WITHOUT CONTRAST HISTORY: Syncope; dizziness; headaches COMPARISON: None. TECHNIQUE: Routine MRA of the neck was performed. 3-D/MIP reformats postprocessed. Percentage stenos is is determined by direct quantitative measurements of distal internal carotid artery diameter judith red with normal reference segments or by criteria similar to NASCET where applicable. CONTRAST: None. FINDINGS: Cervical vertebral arteries: No significant abnormality. Common carotid arteries: No significant abnormality. Carotid bifurcations: Normal Cervical internal carotid arteries: No significant abnormality. Additional findings: None. IMPRESSION: 1. Normal nonenhanced 2-D [id number] MRA of the neck. Signer Name: Mary Cavazos MD Signed: 01/16/2019 9:47 AM Workstation Name: [id number]
[2019-01-16] MEDS: PANTOPRAZOLE 20 MG TAB PO SCH (10:19)
[2019-01-16] MEDS: HEPARIN 5,000 UNIT/1 ML VIAL SUB-Q SCH (10:20)
--- NOTE | 2019-01-16 13:37 | Progress Note ---
Assessment and Plan Patient is a 48-year-old woman with history of ovarian cancer status post resection, IBS, inflammatory bowel disease, chronic back pain, p/w LOC. According to the patient's clinical findings, it is likely that the patient has orthostatic hypotension. To support this, patient had increase in pulse >20 when standing up. Further, patient has chronic diarrhea due to underlying IBS and IBD, which would pre-dispose her to dehydration. Plan: 1. Syncope: - Likely due to orthostatic hypotension, as noted on orthostatic vital signs - Recommend avoiding dehydration. - EEG- pending - Patient's co-workers stated that she had some convulsions during LOC, and also had loss of bowel/bladder control and lip-biting. - MRA head/neck unremarkable - MRI brain showed small 8mm pericallosal left parietal abnormality. Differential includes demyelination vs. chronic microvascular disease. - Will check MRI brain w/ contrast. - Will continue to monitor patient. Thank you for allowing me to take part in the care of this patient. Keyon Álvarez MD Neurology Subjective Date of service: 01/16/19 Principal diagnosis: Syncope Interval history: No acute events overnight. Objective - Exam Narrative Exam: Patient is alert, awake, oriented x4. Follows complex commands. PERRL, EOMI, VFF, no facial weakness noted, tongue midline, b/l intact to LT. 5/5 strength in all extremities. b/l intact to LT. B/l intact to FTN and HTS. 2+ reflexes throughout. No dysarthria or aphasia noted. Patient noted that she feels dizzy when checking EOMI, however no nystagmus noted. - Vital Sign Vital Signs - 12hr 01/16/19 01/16/19 01/16/19 05:43 12:24 12:30 Temperature 97.5 F L 98.0 F 98.0 F Pulse Rate 80 59 L Respiratory 16 20 20 Rate Blood Pressure 123/64 145/67 151/75 O2 Sat by Pulse 98 96 Oximetry - General Apperance Constitutional: comfortable - EENT EENT: ATNC, PERRL, mucous membranes moist, hearing intact, vision intact - Respiratory Respiratory: lungs clear, normal breath sounds - Cardiovascular Cardiovascular: regular rate, normal S1, normal S2 Extremities: no clubbing, cyanosis, no inflammation - Gastrointestinal Gastrointestinal: normoactive bowel sounds, soft, non-tender - Integumentary Integumentary: normal - Musculoskeletal Musculoskeletal: no fluid collection, no pain - Psychiatric Psychiatric: mood/affect appropriate - Laboratory Findings CBC and BMP: 01/15/19 12:51 01/14/19 13:09 Abnormal Lab Findings: Abnormal Labs 01/14/19 01/14/19 01/14/19 13:09 13:09 13:09 WBC 18.6 H MCV 98 H Lymph % (Auto) 10.3 L [place] # 1.0 H Seg Neutrophils % 83.7 H Seg Neutrophils # 15.5 H APTT 21.6 L D-Dimer 689.74 H Carbon Dioxide 19 L
--- NOTE | 2019-01-16 15:18 | Magnetic Resonance Report ---
MR brain w con INDICATION / CLINICAL INFORMATION: 48 years Female; left parietal lesion on non-contrast MRI. TECHNIQUE: Multiplanar, multisequence MR images were obtained. Motion artifact COMPARISON: Unenhanced MRI of the brain-01/16/2019 FINDINGS: Subtle rim enhancement of the periventricular lesion near the atrium of the left lateral ventricle ca nnot be excluded - the possibility of a focal area of acute/subacute demyelination be considered. There is a punctate focus of enhancement in the peripheral white matter of the inferior aspect of the precentral gyral region on the right, near the subcentral gyrus. This finding is nonspecific. Small capillary telangiectasia might be a consideration. Relative short-term follow-up of the brain with and without contrast may be of benefit to further haley luate these findings, especially once patient condition improves. No other signs of abnormal enhancement seen following contrast. IMPRESSION: 1. Subtle rim enhancement of the white matter lesion cannot be excluded-acute/subacute demyelinating plaque might be considered. Relative short-term follow-up with pre-/postcontrast MRI of the brain may be of benefit. 2. There may be a punctate focus of enhancement in the precentral gyral region on the right, as descr ibed above - follow-up as clinically warranted. Signer Name: Trey Man MD, III Signed: 01/16/2019 3:14 PM Workstation Name: [id number]
--- NOTE | 2019-01-16 16:29 | Electroencephalogram Report ---
Electroencephalogram EEG Date of exam: 01/16/19 History: Patient is a 48-year-old woman with history of ovarian cancer status post resection, IBS, inflammatory bowel disease, chronic back pain, p/w LOC. Impression: 1. No seizures or epileptiform activity. Description: The waking background shows an appropriate organization with well-defined anterior posterior voltage and frequency gradients. Posteriorly, there is a well-developed alpha rhythm of [8-9] Hz which is symmetrical and bilaterally reactive. Anteriorly, there is a pattern of lower voltage and slightly irregular theta and beta range frequencies. During drowsiness, there is attenuation of the background rhythms. Photic stimulation was performed, and no photic drive noted. Hyperventilation not performed. Significant lead and motion artifact noted. Throughout, the recording there are no epileptiform abnormalities, focal or lateralizing features, or significant interhemispheric findings. Interpretation: A normal routine EEG does not rule out seizures or epilepsy. Clinical correlation recommended.
--- NOTE | 2019-01-16 16:52 | Discharge Summary ---
Providers - Providers Date of Admission: 01/14/19 15:01 Date of discharge: 01/16/19 Attending physician: ARIANNE HARRELL 01/15/19 13:55 Consult to Physician [CONS] Routine Comment: Consulting Provider: MADI RUIZ Physician Instructions: Reason For Exam: Syncope X 2 [facility] Condition: Fair Hospital course: patient is 48-year-old lady had 2 syncopal episodes at work so presented to ED. Syncopal episodes were [id number] over 30 minutes apart. She had no observed seizure activity observed by coworkers. No precipitating factors. Never happened before. Apparently she was sitting and passed out at her desk. No chest pain or shortness of breath. Patient has history of peripheral neuropathy. No chest pain. No shortness of breath. She was seen and evaluated in ED and admitted. patient was seen by Neurologist. Patient had orthostatic hypotension and Neurology states this is cause of syncope. She was piut on iv fluids. No syncope during stay and was discharged home. Recurrent syncope Due to Orthostatic hypotension Muscle spasm Continue tizanidine Leukocytosis, reactive Gastroesophageal reflux disease On PPIs Disposition: TO HOME OR SELFCARE - Discharge Diagnoses (1) Orthostatic hypotension Status: Acute (2) GERD (gastroesophageal reflux disease) Status: Acute Qualifiers: Esophagitis presence: without esophagitis Qualified Code(s): K21.9 - Gastro-esophageal reflux disease without esophagitis (3) Leukocytosis Status: Acute Qualifiers: Leukocytosis type: unspecified Qualified Code(s): D72.829 - Elevated white blood cell count, unspecified (4) Recurrent syncope Status: Acute (5) Muscle spasm Status: Chronic Core Measure Documentation - Palliative Care Palliative Care/ Comfort Measures: Not Applicable - Core Measures Any of the following diagnoses?: none Exam - Constitutional Vitals: Temp Pulse Resp BP Pulse Ox 98.0 F 59 L 20 151/75 96 01/16/19 12:30 01/16/19 12:24 01/16/19 12:30 01/16/19 12:30 01/16/19 12:24 Plan Activity: advance as tolerated Diet: low fat, low cholesterol, low salt Plan of Treatment: 1.Follow up with PCP in 1 week. 2.Follow up with Neurologist in 1 week [facility] [Primary Care Provider] - 7 Days Forms: Work/School Release Form
[2019-01-16 17:15] VITALS: BP 171/70
== END 2019-01-16 19:16 | disposition home or self-care (01) ==
LOC: ED 11:42 → 3A 15:01 → INTOOBSV 15:01
PROVIDERS: ADMIT Internal Medicine; ATTEND Internal Medicine
DX: R55 Syncope and collapse (principal); I95.1 Orthostatic hypotension; M62.838 Other muscle spasm; D72.829 Elevated white blood cell count, unspecified; K21.9 Gastro-esophageal reflux disease without esophagitis; G89.29 Other chronic pain; M54.9 Dorsalgia, unspecified; R79.89 Other specified abnormal findings of blood chemistry; Z85.43 Personal history of malignant neoplasm of ovary; Z90.710 Acquired absence of both cervix and uterus; Z79.899 Other long term (current) drug therapy
CPT/HCPCS: 36415; 70450; 70544; 70547; 70551; 70552; 71275; 78452; 80048; 80076; 80307; 81001; 82550; 82553; 83735; 84484; 85025; 85027; 85379; 85610; 85730; 86850; 86900; 86901; 93005; 93010; 93017; 93306; 95819; 96361; 96372; 96374; 96375; 99284; A9502; A9577; G0378; J1170; J1644; J2785; J7030; Q9967; 90686

== ENCOUNTER 2019-05-14 00:51 | Emergency (ER) | payer MEDICAID, OTHER ==
[2019-05-14] MEDS ORDERED: SODIUM CHLORIDE 0.9% 1000 ML 1,000 ML IV ONE ×2 (01:14)
[2019-05-14] MEDS ORDERED: SODIUM CHLORIDE 0.9% 1000 ML IV SOLN IV ONE (01:19)
[2019-05-14] MEDS ORDERED: cefTRIAXone/NS 2 GM/100 ML 2 GM/100 ML BAG IV SCH (01:19)
--- NOTE | 2019-05-14 01:19 | Emergency Department Report ---
ED Syncope HPI - General Chief Complaint: Syncope Stated Complaint: SYNCOPE Time Seen by Provider: 05/14/19 01:13 Source: patient Exam Limitations: no limitations - History of Present Illness Initial Comments: Mrs. Sherwood is a 48-year-old female with history of IBS, ovarian cervical cancer in remission for the past 13 years, syncope who presents with 2 syncopal episodes at home. She also had severe diarrhea over the past few days. Poor appetite. Was evaluated at outside hospital 1 week ago. Chest x-ray was normal at that time. When she got up out of a sitting position, she passed out. With brief loss of consciousness. Syncope unwitnessed. She recalled the aura li ghtheadedness. She struck her head on furniture in her bedroom. When she attempted to get up, the episode happened again. She had diarrhea during both episodes. She denies chest pain. She denies abdominal pain. She denies shortness of breath. She has had low-grade fever recently. According to electronic medical record, she was evaluated for syncope in December 4 months ago. Diagnosed with orthostatic hypotension. MRI MRA of the brain and neck were without abnormality. Myocardial perfusion cardiac scan without ischemia at that time. Timing/Prior Episodes: recent history Context: standing Loss of Consciousness: brief (seconds) Current Symptoms: other (Generalized malaise with diarrhea) - Related Data Allergies/Adverse Reactions: Allergies No Known Allergies Allergy (Unverified 08/25/14 17:27) Home Medications: Ambulatory Orders Gabapentin 300 mg PO QHS 01/14/19 Omeprazole 20 mg PO QAC 01/14/19 tiZANidine [Zanaflex 4mg TAB] 4 mg PO QHS 01/14/19 cloNIDine [Catapres] 0.1 mg PO BID 01/16/19 Loperamide [Imodium] 2 tab PO QID 2 Days #16 capsule 05/14/19 ED Review of Systems ROS: Stated complaint: SYNCOPE Other details as noted in HPI Comment: All other systems reviewed and negative Constitutional: fever, malaise Respiratory: cough Gastrointestinal: diarrhea ED Past Medical Hx - Past Medical History Previous Medical History?: Yes Additional medical history: 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 ovarian CA. IBS - Surgical History Past Surgical History?: Yes Additional Surgical History: Hysterectomy. Bladder tack - Social History Smoking Status: Never Smoker Substance Use Type: Prescribed - Medications Home Medications: Home Medications Medication Instructions Recorded Confirmed Last Taken Type Gabapentin 300 mg PO QHS 01/14/19 01/14/19 01/14/19 History Omeprazole 20 mg PO QAC 01/14/19 01/14/19 01/14/19 History tiZANidine [Zanaflex 4mg TAB] 4 mg PO QHS 01/14/19 01/14/19 01/13/19 History cloNIDine [Catapres] 0.1 mg PO BID 01/16/19 01/16/19 01/14/19 History Loperamide [Imodium] 2 tab PO QID 2 Days #16 capsule 05/14/19 Unknown Rx ED Physical Exam - General Limitations: No Limitations General appearance: alert, in no apparent distress - Head Head exam: Present: atraumatic, normocephalic - Eye Eye exam: Present: normal appearance - ENT ENT exam: Present: mucous membranes moist - Neck Neck exam: Present: normal inspection, full ROM - Respiratory Respiratory exam: Present: normal lung sounds bilaterally. Absent: respiratory distress, wheezes, rales, rhonchi - Cardiovascular Cardiovascular Exam: Present: regular rate, normal rhythm, normal heart sounds. Absent: systolic murmur, diastolic murmur, rubs, gallop - GI/Abdominal GI/Abdominal exam: Present: soft, normal bowel sounds. Absent: distended, tenderness, guarding - Extremities Exam Extremities exam: Present: normal inspection - Neurological Exam Neurological exam: Present: alert, oriented X3 - Psychiatric Psychiatric exam: Present: normal affect, normal mood - Skin Skin exam: Present: warm, dry, intact, normal color. Absent: rash ED Course Vital Signs 05/14/19 05/14/19 01:06 01:16 Temperature 102.6 F H 101.8 F H Pulse Rate 67 78 Respiratory 20 20 Rate Blood Pressure 83/49 104/59 [Left] O2 Sat by Pulse 92 93 Oximetry ED Medical Decision Making - Lab Data Result diagrams: 05/14/19 01:51 05/14/19 01:51 - EKG Data EKG shows normal: sinus rhythm, axis, intervals, QRS complexes, ST-T waves Rate: normal - EKG Data Interpretation: normal EKG 05/14/19 01:35 Normal sinus rhythm normal rate normal axis normal intervals no ST elevation no ST-T signs of ischemia normal EKG rate 75 bpm - Radiology Data Radiology results: report reviewed AP portable chest: No acute findings - Medical Decision Making Mrs. Sherwood presents with fever cough diarrhea syncope. Suspect orthostatic hypotension patient received IV hydration. Considering current pandemic, COVID 19 is a consideration. I strongly encouraged her to continue 14 days of isolation away from her workplace if possible. I have prescribed loperamide CBC does reveal lymphopenia which is associated with coronavirus infection. Rapid flu test negative Critical care attestation.: If time is entered above; I have spent that time in minutes in the direct care of this critically ill patient, excluding procedure time. ED Disposition Clinical Impression: Suspected 2019 novel coronavirus infection, Syncope Disposition: DC-01 TO HOME OR SELFCARE Is pt being admited?: No Does the pt Need Aspirin: No Condition: Stable Instructions: COVID-19 Additional Instructions: You will either have to self isolate for 14 days or obtain a private lab tests for COVID 19 coronavirus in order to return to work sooner. Prescriptions: Loperamide [Imodium] 2 tab PO QID 2 Days #16 capsule Referrals: PRIMARY CARE, [Primary Care Provider] - [facility]
[2019-05-14] MEDS ORDERED: AZITHROMYCIN 500 MG in SODIUM CHLORIDE 0.9% 250ML 250 ML IV ONE (02:00)
--- NOTE | 2019-05-14 02:01 | XRay Report ---
CHEST 1 VIEW INDICATION / CLINICAL INFORMATION: cough. COMPARISON: None available. FINDINGS: SUPPORT DEVICES: None. HEART / MEDIASTINUM: No significant abnormality. LUNGS / PLEURA: No significant pulmonary or pleural abnormality. No pneumothorax. ADDITIONAL FINDINGS: No significant additional findings. IMPRESSION: No acute pulmonary or pleural abnormality Signer Name: Jj Barrios MD FACR Signed: 05/14/2019 1:57 AM Workstation Name: [id number]
[2019-05-14 02:02] LABS: Basophils % (Auto) 0.4 % (0.0-1.8); Hematocrit 40.2 % (30.3-42.9); Hemoglobin 13.5 gm/dl (10.1-14.3); Lymphocytes # (Auto) 0.9 K/mm3 (1.2-5.4); Lymphocytes % (Auto) 23.6 % (13.4-35.0); Mean Corpuscular HGB Conc 34 % (30-34); Mean Corpuscular Volume 95 fl (79-97); Monocytes # (Auto) 0.3 K/mm3 (0.0-0.8); Monocytes % (Auto) 8.6 % (0.0-7.3); Platelet Count 139 K/mm3 (140-440); Red Blood Count 4.22 M/mm3 (3.65-5.03); Red Cell Distribution Width 12.6 % (13.2-15.2)
[2019-05-14 02:24] LABS: Alanine Aminotransferase 24 units/L (7-56); Albumin 4.3 g/dL (3.9-5); BUN/Creatinine Ratio 22; Blood Urea Nitrogen 24 mg/dL (7-17); Calcium 8.8 mg/dL (8.4-10.2); Hemolysis Index 18
[2019-05-14] MEDS ORDERED: LOPERAMIDE 2 MG CAP PO ONE (02:42)
[2019-05-14] MEDS ORDERED: ACETAMINOPHEN 500 MG TAB PO ONE (02:42)
[2019-05-14 06:28] VITALS: BP 124/80
[2019-05-14] MEDS ORDERED: AZITHROMYCIN 500 MG in SODIUM CHLORIDE 0.9% 250ML 250 ML IV SCH (10:00)
== END 2019-05-14 06:35 | disposition home or self-care (01) ==
LOC: ED 00:51
DX: Z03.818 Encounter for observation for suspected exposure to other biological agents ruled out (principal); R55 Syncope and collapse; Z90.710 Acquired absence of both cervix and uterus
CPT/HCPCS: 36415; 71045; 80053; 82140; 85025; 87040; 87400; 93005; 93010; 96365; 96367; 99284; J0456; J0696; J7030; J7050